=== PATIENT | male | born 1975 | race Two or more races ===

== ENCOUNTER 2025-06-10 17:32 | Emergency (ER) | payer MEDICAID, SELFPAY ==
[2025-06-10 17:33] VITALS: BMI 62.1
[2025-06-10 17:55] VITALS: BP 176/84; PULSE 89; RESP 20; TEMP 37; O2SAT 95
--- NOTE | 2025-06-10 18:25 | XR_ITS ---
EXAMINATION: PA lateral chest 2 views TECHNIQUE: Upright PA and lateral chest 2 views Date and time: June 10, 2025, 1844 hours, comparison January 31, 2018 FINDINGS: Abnormal opacity on the lateral view in the anterior segment right upper lobe overlying the right hilum Normal heart size Benign lobulation left hemidiaphragm No pulmonary edema IMPRESSION: Pneumonia in the anterior segment right upper lobe overlying the right hilum on the PA view Follow-up films strongly recommended to document clearing and exclude underlying right hilar lymphadenopathy
--- NOTE | 2025-06-10 18:25 | PD.EDADULT ---
ED General RME/HPI General Chief complaint: Flu Like Symptoms Stated complaint: COUGH x 1 WEEK, NOW COUGHING BLOOD Time Seen by Provider: 06/10/25 17:33 Arrival date/time: 06/10/25 17:32 CC: Cough wheezing HPI ongoing for 1 week, patient is a diabetic takes his medicines regulated but does not monitor sugar. Patient denies fever chills shortness of breath or difficulty breathing. OTC medicines are not helping. Related Data Previous Rx's ?Medication ?Instructions ?Recorded amoxicillin 875 mg-potassium 1 tab PO BID #14 tabs 06/10/25 clavulanate 125 mg tablet benzonatate 100 mg capsule 100 mg PO BID PRN cough #20 caps 06/10/25 Allergies Allergy/AdvReac Type Severity Reaction Status Date / Time No Known Allergies Allergy Verified 06/10/25 17:35 Review of Systems Review of Systems Narrative Review of Systems: GEN: No fever, no chills, no weight loss EYES: No discharge, no visual changes, no pain HEENT: No ear pain, no congestion, no sore throat PULM: No shortness of breath, + cough, no congestion CV: No chest pain, no dyspnea on exertion, no palpitations GI: No nausea, no vomiting, no diarrhea, no pain, no constipation : No frequency, no urgency, no dysuria MUSC/SKEL: No joint pain, no back pain SKIN: No rash PSYCH: No hallucinations, no depression HEME/LYMPH: No easy bleeding or bruising tendencies NEURO: No weakness, no headache Past Medical History Past Medical History CARDIAC: Positive Hypertension; Negative Congestive Heart Failure RESPIRATORY: Positive Pneumonia; Negative Chronic Obstructive Pulmonary Disease (COPD) GASTROINTESTINAL: Positive Hepatitis (HEP C) GENITOURINARY: Negative Renal Disease ENDOCRINE: Positive Diabetes Mellitus Type 2; Negative Diabetes Mellitus Type 1 Social History SMOKING STATUS: Never smoker ED Exam Narrative Physical exam: [General: Not in any acute distress Head normocephalic HEENT: Within acceptable limits Neck is supple nontender Chest equal chest rise nontender to palpation Respiratory: Bibasilar expiratory crackles. Upper airway wheezing on exhalation. Wet nonproductive cough. No tachypnea CV: Rate rhythm is regular no murmurs rubs or clicks Abdomen is soft nontender no masses positive bowel sounds all 4 quadrants Back: No CVA tenderness no spinous process tenderness from cervical spine thoracic and lumbar spine Skin: Intact no petechiae rash induration ulceration or crepitus Extremities: Moving all extremity against resistance cap refill less than 2 seconds neurosensory intact Neuro: Awake alert oriented x3 Glascow coma 15 no focal deficits] Course Quality Measures none Orders Category Date Time Status Bedside Blood Glucose NOW Care 06/10/25 18:25 Completed XR chest 2V Stat Exams 06/10/25 18:25 Completed cefTRIAXone [Rocephin] 1,000 mg Med 06/10/25 19:44 Discontinued Lidocaine 1% 20 ml [Xylocaine 1% 20 ML] 2.1 ml IM X1 Vital Signs Vital signs: Vital Signs Temperature 98.6 F 06/10/25 17:55 Pulse Rate 89 06/10/25 17:55 Respiratory Rate 20 06/10/25 17:55 Blood Pressure 176/84 H 06/10/25 17:55 Pulse Oximetry (%) 95 06/10/25 17:55 Oxygen Delivery Method Room Air 06/10/25 17:55 Discharge Plan Plan Patient Disposition: HOME (Self Care) Patient condition on transfer: Stable Prescriptions/Referrals Prescriptions/Med Rec: New amoxicillin-pot clavulanate 875-125 mg tablet 1 tab PO BID Qty: 14 0RF benzonatate 100 mg capsule 100 mg PO BID PRN (Reason: cough) Qty: 20 0RF Referrals: Garret Ann MD [Physician, Family Practice] - In 1 week No Primary/Family,Physician [Primary Care Provider] - In 1 week Problem List Clinical Impression: Pneumonia Patient/Caregiver Discharge Instructions Other Activity Instructions:: Take the medications as prescribed, monitor your blood sugars on a regular basis follow-up with [facility] doctor listed above. Education Materials: Treating Pneumonia, ED Pneumonia (Adult) Print Language: Tongan Stand Alone Forms: Daiana Award Info., Patient Portal Info Letter MDM Clinical Information Provided by: patient Medical Records reviewed [facility] Meds/Rx considered, not ordered None Labs/Rad/Tests considered, not ordered None Chronic Illness/Social Conditions Explain: Diabetes EKG EKG not done Labs Labs: interpreted by me Imaging Imaging interpretation: interpreted by me Medication Administration(s) Medication Administration History Discontinued Medications Ceftriaxone Sodium 1,000 mg/ (Lidocaine HCl 2.1 ml) 0 mg IM X1 ONE Stop: 06/10/25 19:45 Last Admin: 06/10/25 20:03 Dose: 1,000 mg Documented By: JUSTYNA
[2025-06-10] MEDS: cefTRIAXone 1,000 MG, LIDOCAINE 1% 20 ML 2.1 ML IM (20:03)
== END 2025-06-10 20:52 | disposition home or self-care (01) ==
PROVIDERS: Emergency Provider Emergency Medicine
DX: J18.9 Pneumonia, unspecified organism (principal); E11.9 Type 2 diabetes mellitus without complications
CPT/HCPCS: 71046; 96372; 99283; J0696; J3490